=== PATIENT | female | born 1975 | race Caucasian/White ===

== ENCOUNTER 2017-01-24 10:22 | Emergency (ER) | payer OTHER ==
[2017-01-24] MEDS ORDERED: IPRATROPIUM/ALBUTEROL 0.5-2.5 MG/3 ML AMPUL NEB ONE (10:38)
--- NOTE | 2017-01-24 10:41 | ER Document Report ---
ED Medical Screen (RME) - General Chief Complaint: Shortness Of Breath Stated Complaint: DIFFICULTY BREATHING Time Seen by Provider: 01/24/17 10:35 Mode of Arrival: Ambulatory Information source: Patient Notes: Pt c/o sob, cough and wheezing for the past few days. Pt was seen at an urgent care yesterday and had a cxr (was told it was fine), placed on steroids and an inhaler. Pt c/o worsening SOB and wheezing. Pt recently stopped smoking. Pt did take her dose of steroid today. Pt denies any hx of travel, immobilization, or hx PE or DVT. Pt denies any pain. hx: none - Related Data Allergies/Adverse Reactions: No Known Allergies Allergy (Unverified 01/24/17 10:30) Past Medical History Renal/ Medical History: Denies: Hx Peritoneal Dialysis Physical Exam - Vital signs Vitals: Temp Pulse Resp BP Pulse Ox 97.6 F 124 H 18 179/104 H 94 01/24/17 10:27 01/24/17 10:01/24/17 10:01/24/17 10:01/24/17 10:27 - Respiratory Respiratory status: Tachypnea Breath sounds: Nonproductive cough, Wheezing - diffuse bilat Course - Vital Signs Vital signs: Temp Pulse Resp BP Pulse Ox 97.6 F 124 H 18 179/104 H 94 01/24/17 10:27 01/24/17 10:27 01/24/17 10:27 01/24/17 10:27 01/24/17 10:27
[2017-01-24] MEDS ORDERED: ALBUTEROL SULFATE 0.083% NEB 2.5 MG/3 ML AMPUL NEB SCH (10:53)
--- NOTE | 2017-01-24 10:59 | RADIOLOGY REPORT (SQ) ---
EXAM DESCRIPTION: CHEST PA/LAT COMPLETED DATE/TIME: 01/24/2017 10:46 am REASON FOR STUDY: cough, wheezing COMPARISON: None. EXAM PARAMETERS: NUMBER OF VIEWS: two views TECHNIQUE: Digital Frontal and Lateral radiographic views of the chest acquired. RADIATION DOSE: NA LIMITATIONS: none FINDINGS: LUNGS AND PLEURA: No opacities, masses or pneumothorax. No pleural effusion. MEDIASTINUM AND HILAR STRUCTURES: No masses or contour abnormalities. HEART AND VASCULAR STRUCTURES: Heart normal size. No evidence for failure. BONES: No acute findings. HARDWARE: None in the chest. OTHER: No other significant finding. IMPRESSION: NO SIGNIFICANT RADIOGRAPHIC FINDING IN THE CHEST. TECHNICAL DOCUMENTATION: JOB ID: [id number] [employer]- All Rights Reserved
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
[2017-01-24] MEDS ORDERED: METHYLPREDNISOLONE ACETATE INJ 40 MG/1 ML ML IM ONE (11:18)
[2017-01-24] MEDS ORDERED: DEXAMETHASONE SOD PHOS INJ 10 MG/1 ML VIAL IM ONE (11:18)
[2017-01-24] MEDS ORDERED: CEFTRIAXONE INJ 1000 MG VIAL IM ONE (11:18)
[2017-01-24] MEDS ORDERED: LIDOCAINE 1% INJ-PF (10 MG/ML) 30 ML SDV ONE (11:34)
[2017-01-24] MEDS ORDERED: ALBUTEROL SULFATE 0.083% NEB 2.5 MG/3 ML AMPUL NEB ONE (11:51)
[2017-01-24 13:48] VITALS: BP 147/68
== END 2017-01-24 13:48 | disposition home or self-care (01) ==
LOC: ER 10:22
DX: J45.41 Moderate persistent asthma with (acute) exacerbation (principal); R05 Cough; F17.200 Nicotine dependence, unspecified, uncomplicated
CPT/HCPCS: 94640 ×2; 99284; 96372; 71020; J3490; J1020; J0696; J1100; J7620